=== PATIENT | female | born 2000 | race Two or more races ===

== ENCOUNTER 2022-06-05 14:02 | Emergency (ER) | payer OTHER ==
[~2022-06-05] VITALS: Ht 170.2 cm; Wt 74.8 kg
== END 2022-06-05 16:16 | disposition home or self-care (01) ==
LOC: ER 14:02
DX: S09.90XA Unspecified injury of head, initial encounter (principal); W05.1XXA Fall from non-moving nonmotorized scooter, initial encounter; Y93.9 Activity, unspecified; Y92.9 Unspecified place or not applicable